=== PATIENT | female | born 1990 | race Two or more races ===

== ENCOUNTER 2022-03-27 19:20 | Emergency (ER) | payer OTHER ==
[~2022-03-27] VITALS: Ht 170.2 cm; Wt 61.8 kg
[2022-03-27 19:38] VITALS: BP 100/68
== END 2022-03-27 20:59 | disposition left against medical advice (07) ==
LOC: ER 19:20
DX: Z53.21 Procedure and treatment not carried out due to patient leaving prior to being seen by health care provider (principal); Z98.890 Other specified postprocedural states
CPT/HCPCS: 82962; 93005